=== PATIENT | female | born 1975 | race Caucasian/White ===

== ENCOUNTER 2017-06-07 04:22 | Inpatient (IN) | payer BC ==
[2017-06-07 05:16] LABS: ADD MAN DIFF? NO
[2017-06-07 05:20] LABS: WHITE BLOOD COUNT 6.2 10^3/ul (4.8-10.8)
[2017-06-07 05:20] LABS: BASOPHILS % 0.3 % (0.0-2.0); EOSINOPHILS # 0.1 10^3/ul (0.0-0.5); EOSINOPHILS % 0.8 % (0.0-7.0); HEMATOCRIT 26.3 % (37.0-47.0); HEMOGLOBIN 8.8 g/dl (12.0-16.0); LYMPHOCYTES # 0.8 10^3/ul (0.8-2.9); LYMPHOCYTES % 12.9 % (15.0-51.0); MEAN CORPUSCULAR HGB CONC 33.5 g/dl (32.0-37.0); MEAN CORPUSCULAR VOLUME 86.8 fl (82.0-101.0); MEAN PLATELET VOLUME 10.1 fl (7.4-10.4); MONOCYTES % 0.6 % (0.0-11.0); NEUTROPHIL # 5.3 10^3/ul (1.6-7.5); NEUTROPHILS % 84.6 % (39.0-77.0); PLATELET COUNT 213 10^3/UL (140-415); RED BLOOD COUNT 3.03 10^6/ul (4.20-5.40); RED CELL DISTRIBUTION WIDTH 14.4 % (11.5-14.5)
[2017-06-07 06:01] LABS: ALANINE AMINOTRANSFERASE 25 IU/L (13-69); ALBUMIN 3.4 g/dl (3.3-4.9); ALBUMIN/GLOBULIN RATIO 1.17; ALKALINE PHOSPHATASE 77 IU/L (42-121); ANION GAP 14 (8-16); ASPARTATE AMINO TRANSFERASE 16 IU/L (15-46); BILIRUBIN,INDIRECT 1.4 mg/dl (0-1.1); BILIRUBIN,TOTAL 1.4 mg/dl (0.2-1.3); BLOOD UREA NITROGEN 10 mg/dl (7-20); CALCIUM 8.2 mg/dl (8.4-10.2); CARBON DIOXIDE 23 mmol/L (21-31); CHLORIDE 110 mmol/L (97-110); GLUCOSE 134 mg/dl (70-220); POTASSIUM 3.1 mmol/L (3.5-5.1); SODIUM 144 mmol/L (135-144); TOTAL PROTEIN 6.3 g/dl (6.1-8.1)
[2017-06-07] MEDS: DEXTROSE 5%-0.45% NACL 1,000 ML IV (06:21)
[2017-06-07] MEDS ORDERED: ACETAMINOPHEN 325 MG TAB PO (07:30)
[2017-06-07] MEDS ORDERED: ZOLPIDEM 5 MG TAB PO (07:30)
[2017-06-07] MEDS ORDERED: NACL 0.9% 3 ML SYG IV (07:30)
[2017-06-07] MEDS ORDERED: HYDROCODONE/APAP (5/325) TAB PO (07:30)
[2017-06-07 07:44] LABS: MAGNESIUM 1.8 mg/dl (1.7-2.5)
[2017-06-07] MEDS: D5W-0.45 NACL + KCL 20 MEQ 1,000 ML IV ×2 (08:22→17:30)
[2017-06-07] MEDS: POTASSIUM CHLORIDE 100 ML IVPB ×2 (09:16→11:48)
[2017-06-07 11:00] LABS: IRON 188 ug/dl (35-150)
[2017-06-07 11:10] LABS: % IRON SATURATION 51 % SAT (22-52); TOTAL IRON BINDING CAPACITY 367 ug/dl (241-421)
[2017-06-07 11:46] LABS: FERRITIN 10.1 ng/ml (6.2-137.0)
[2017-06-07] MEDS ORDERED: PROPOFOL 20 ML (14:29)
[2017-06-07] MEDS ORDERED: LIDOCAINE 2% (SDV) 5 ML INJ (14:29)
[2017-06-07] MEDS ORDERED: CEFAZOLIN 1 GM INJ (14:29)
[2017-06-07] MEDS ORDERED: EPHEDrine SULFATE 50 MG/5 ML SYG IV (14:30)
[2017-06-07] MEDS ORDERED: FENTAnyl 50 MCG/ML VIAL IV ×3 (14:30)
[2017-06-07] MEDS ORDERED: MIDAZOLAM 1 MG/ML 2 ML INJ IV (14:30)
[2017-06-07] MEDS ORDERED: LABETALOL HCL 20MG INJ IV (14:30)
[2017-06-07] MEDS ORDERED: DIPHENHYDRAMINE 50 MG INJ IV (14:30)
[2017-06-07] MEDS ORDERED: OXYCODONE/ACETAMINOPHEN (5/325) TAB PO ×2 (14:30)
[2017-06-07] MEDS ORDERED: METOCLOPRAMIDE 10 MG INJ IV (14:30)
[2017-06-07] MEDS ORDERED: hydrALAzine 20 MG INJ IV ×2 (14:30→18:00)
[2017-06-07] MEDS ORDERED: HYDROmorphONE (0.2 MG/ML) 10ML SYG IV ×3 (14:30)
[2017-06-07] MEDS ORDERED: ONDANSETRON 4 MG INJ IV (14:30)
[2017-06-07] MEDS ORDERED: METOCLOPRAMIDE 10 MG INJ (14:49)
[2017-06-07] MEDS ORDERED: ONDANSETRON 4 MG INJ (14:49)
[2017-06-07] MEDS: MEPERIDINE 25 MG INJ IV (15:51)
[2017-06-07] MEDS: ONDANSETRON 4 MG INJ IV (15:51)
[2017-06-07] MEDS: morphine 2 MG INJ IV (16:53)
[2017-06-08] MEDS: D5W-0.45 NACL + KCL 20 MEQ 1,000 ML IV (00:56)
[2017-06-08 05:49] LABS: ADD MAN DIFF? NO
[2017-06-08 06:01] LABS: WHITE BLOOD COUNT 7.4 10^3/ul (4.8-10.8)
[2017-06-08 06:01] LABS: BASOPHILS % 0.5 % (0.0-2.0); EOSINOPHILS # 0.2 10^3/ul (0.0-0.5); EOSINOPHILS % 2.6 % (0.0-7.0); HEMATOCRIT 26.5 % (37.0-47.0); HEMOGLOBIN 8.8 g/dl (12.0-16.0); LYMPHOCYTES % 26.5 % (15.0-51.0); MEAN CORPUSCULAR HEMOGLOBIN 29.2 pg (29.0-33.0); MEAN CORPUSCULAR HGB CONC 33.2 g/dl (32.0-37.0); MEAN PLATELET VOLUME 10.5 fl (7.4-10.4); MONOCYTE # 0.6 10^3/ul (0.3-0.9); MONOCYTES % 7.4 % (0.0-11.0); NEUTROPHIL # 4.7 10^3/ul (1.6-7.5); NEUTROPHILS % 62.5 % (39.0-77.0); PLATELET COUNT 252 10^3/UL (140-415); RED BLOOD COUNT 3.01 10^6/ul (4.20-5.40); RED CELL DISTRIBUTION WIDTH 14.2 % (11.5-14.5)
[2017-06-08 06:19] LABS: ANION GAP 12 (8-16); BLOOD UREA NITROGEN 5 mg/dl (7-20); CALCIUM 7.9 mg/dl (8.4-10.2); CARBON DIOXIDE 24 mmol/L (21-31); CHLORIDE 106 mmol/L (97-110); CREATININE 0.77 mg/dl (0.44-1.00); GLUCOSE 120 mg/dl (70-220); POTASSIUM 3.3 mmol/L (3.5-5.1); SODIUM 139 mmol/L (135-144)
[2017-06-08] MEDS: POTASSIUM CHLORIDE (SR) 20 MEQ TAB PO (09:28)
== END 2017-06-08 12:55 | disposition home or self-care (01) | DRG 742 ==
LOC: MS2 04:22
PROC: 0U5B8ZZ Destruction of Endometrium, Via Natural or Artificial Opening Endoscopic (ICD-10-PCS; principal; 2017-06-07 14:00)
PROC: 0UDB7ZX Extraction of Endometrium, Via Natural or Artificial Opening, Diagnostic (ICD-10-PCS; 2017-06-07 14:00)
DX: N93.8 Other specified abnormal uterine and vaginal bleeding (principal); D62 Acute posthemorrhagic anemia; E66.9 Obesity, unspecified; Z68.29 Body mass index [BMI] 29.0-29.9, adult
CPT/HCPCS: 80048; 80053; 82728; 83540; 83735; 84702; 85025; 86850; 86900; 86901; 88305